=== PATIENT | female | born 1970 | race African-American/Black ===

== ENCOUNTER 2017-01-16 21:13 | Emergency (ER) | payer MEDICAID ==
[~2017-01-16] VITALS: Ht 162.6 cm; Wt 64.9 kg
[2017-01-16 22:05] LABS: Basophils # (auto) 0.1 uL; Basophils % (auto) 1.3 % (0.0-2.0); Eosinophils # (auto) 0.4 uL; Eosinophils % (auto) 5.6 % (0.0-7.0); Hematocrit 36.6 % (36.0-46.0); Hemoglobin 12.2 g/dL (12.2-16.2); Lymphocytes # (auto) 3.6 uL; Lymphocytes % (auto) 47.7 % (10.0-50.0); Mean Corpuscular Hgb Conc. 33.3 g/dL (32.0-36.0); Mean Platelet Volume 7.6 fL (6.9-10.8); Monocytes # (auto) 0.5 uL; Monocytes % (auto) 6.6 % (0.0-12.0); Neutrophils # (auto) 2.9 uL; Neutrophils % (auto) 38.8 % (37.0-80.0); Nucleated Red Blood Cells % 0.1 %; Platelet Count (auto) 323 10^3/uL (140-450); Red Cell Distribution Width 14.4 % (11.8-14.3); White Blood Cell 7.6 10^3/uL (4.4-10.8)
[2017-01-16 22:19] LABS: Prothrombin Time 10.9 sec (9.37-12.3)
[2017-01-16 22:28] LABS: Albumin 3.5 g/dL (3.4-5.0); Alkaline Phosphatase 74 U/L (45-117); Anion Gap 6 (5-15); Aspartate Aminotransferase 14 U/L (15-37); BUN/Creatinine Ratio 11.7; Bilirubin, Total 0.2 mg/dL (0.2-1.0); Blood Urea Nitrogen 9 mg/dL (7-18); Calcium 8.2 mg/dL (8.5-10.1); Carbon Dioxide 25 mmol/L (21-32); Chloride 108 mmol/L (98-107); GFR African American 104 mL/min; GFR Non-African American 86 mL/min; Glucose 94 mg/dL (74-106); Magnesium 2.4 mg/dL (1.6-2.6); Potassium 3.7 mmol/L (3.5-5.1); Sodium 139 mmol/L (136-145); Total Protein 8.2 g/dL (6.4-8.2)
[2017-01-17 04:20] LABS: B-Type Natriuretic Peptide 33.55 pg/mL (0-100)
[2017-01-17] MEDS ORDERED: cloNIDine HCL 0.1 MG TAB PO ONE (04:30)
[2017-01-17 04:56] LABS: Temperature: 23.7 C (20.0-25.0)
[2017-01-17 04:57] LABS: Urine Bilirubin Negative (Negative); Urine Blood Negative /uL (Negative); Urine Color Yellow (Yellow); Urine Glucose Normal (Normal); Urine Ketone Negative (Negative); Urine Nitrite Negative (Negative); Urine RBC 2 /hpf (0 - 4); Urine Squamous Epithelial Cell FEW /hpf (<5); Urine Urobilinogen Normal (Negative)
[2017-01-17] MEDS ORDERED: HYDROcodone-ACET 5/325MG TAB PO ONE (07:30)
[2017-01-17 07:48] VITALS: BP 139/95
== END 2017-01-17 08:24 | disposition home or self-care (01) ==
LOC: ER 21:13
DX: N39.0 Urinary tract infection, site not specified (principal); H92.01 Otalgia, right ear; F17.210 Nicotine dependence, cigarettes, uncomplicated; R07.89 Other chest pain; I10 Essential (primary) hypertension; J45.909 Unspecified asthma, uncomplicated; Z88.6 Allergy status to analgesic agent
CPT/HCPCS: 36415; 70450; 71010; 80053; 81001; 81025; 83735; 83880; 84443; 84484; 85025; 85610; 85730; 93005

== ENCOUNTER 2023-01-18 05:36 | Emergency (ER) | payer MEDICAID ==
[~2023-01-18] VITALS: Ht 170.2 cm; Wt 70.0 kg
[2023-01-18 05:52] VITALS: BP 118/86; PULSE 73; RESP 16; O2SAT 96
[2023-01-18 06:42] LABS: Basophils # (auto) 0.1 10 ^3/uL (0-0.2); Basophils % (auto) 0.8 % (0.0-2.0); Eosinophils # (auto) 0.2 10 ^3/uL (0-0.8); Eosinophils % (auto) 1.3 % (0.0-7.0); Hematocrit 41.2 % (36.0-46.0); Lymphocytes # (auto) 1.9 10 ^3/uL (0.4-5.4); Lymphocytes % (auto) 13.9 % (10.0-50.0); Mean Corpuscular Hemoglobin 32.3 pg (28.0-32.0); Mean Corpuscular Volume 94.8 fL (80.0-100.0); Monocytes # (auto) 0.5 10 ^3/uL (0-1.3); Monocytes % (auto) 3.8 % (0.0-12.0); Neutrophils # (auto) 10.8 10 ^3/uL (1.6-8.6); Neutrophils % (auto) 80.2 % (37.0-80.0); Nucleated Red Blood Cells % 0.1 %; Red Blood Cells 4.35 10^6/uL (4.0-5.20); Red Cell Distribution Width 15.2 % (11.8-14.3); White Blood Cell 13.5 10^3/uL (4.4-10.8)
[2023-01-18 07:03] LABS: Alanine Aminotransferase 20 U/L (7-40); Albumin 4.7 g/dL (3.2-4.8); Alkaline Phosphatase 103 U/L (46-116); Anion Gap 7 (5-15); Aspartate Aminotransferase 19 U/L (13-40); BUN/Creatinine Ratio 12.4 (10.0-20.0); Bilirubin, Total 0.2 mg/dL (0.2-1.0); Blood Urea Nitrogen 13 mg/dL (9-23); Calcium 9.3 mg/dL (8.7-10.4); Carbon Dioxide 23 mmol/L (20-30); Chloride 111 mmol/L (98-107); Glucose 107 mg/dL (74-106); Lipase 46 U/L (12-53); Potassium 4.2 mmol/L (3.5-5.1); Sodium 141 mmol/L (136-145); Total Protein 7.6 g/dL (5.7-8.2)
== END 2023-01-18 12:53 | disposition left against medical advice (07) ==
LOC: ER 05:36 → EDBD 05:36 → ER 12:53
DX: R10.30 Lower abdominal pain, unspecified (principal); I10 Essential (primary) hypertension; J45.909 Unspecified asthma, uncomplicated; F17.210 Nicotine dependence, cigarettes, uncomplicated; Z88.6 Allergy status to analgesic agent
CPT/HCPCS: 36415; 80053; 83690; 84484; 85025; 93005

== ENCOUNTER 2023-04-29 22:43 | Emergency (ER) | payer MEDICAID ==
[~2023-04-29] VITALS: Ht 162.6 cm; Wt 76.8 kg
[~2023-04-29 22:43] MED LIST: CALA1SUS2 EX; HYD25TP TOP; HYDR-3682 PO; METH4PAK PO
[2023-04-29 23:05] VITALS: BP 129/84; PULSE 93; RESP 18; O2SAT 98
[2023-04-30] MEDS: DexAMETHasone SOD PHOS 10MG/1ML VIAL INJ IM ONE (01:48)
[2023-04-30] MEDS: diphenhdrAMINE HCL 50 MG/1 ML VL IM ONE (01:48)
[2023-04-30] MEDS ORDERED: EPIN0.1I11 IJ (03:37)
== END 2023-04-30 03:59 | disposition home or self-care (01) ==
LOC: ER 22:43
DX: L50.0 Allergic urticaria (principal); F17.210 Nicotine dependence, cigarettes, uncomplicated; I10 Essential (primary) hypertension; J45.909 Unspecified asthma, uncomplicated; Z88.6 Allergy status to analgesic agent
CPT/HCPCS: 96372; 99284; J1100; J1200

== ENCOUNTER 2023-05-01 04:47 | Inpatient (IN) | payer MEDICAID ==
[~2023-05-01] VITALS: Ht 162.6 cm; Wt 78.6 kg
[~2023-05-01 04:47] MED LIST changes: +EPIN0.1I11 IJ
[2023-05-01] MEDS: EPINEPHrine HCL 1 MG/1 ML AMP IM ONE ×3 (05:42→06:13)
[2023-05-01] MEDS: diphenhdrAMINE HCL 50 MG/1 ML VL IV ONE (05:49)
[2023-05-01] MEDS: FAMOTIDINE (10MG/ML) 2ML VL IV ONE (05:50)
[2023-05-01] MEDS: DexAMETHasone SOD PHOS 10MG/1ML VIAL INJ IV ONE (05:51)
[2023-05-01 06:03] VITALS: PULSE 102; RESP 13; O2SAT 97
[2023-05-01 06:03] LABS: Hematocrit 45.4 % (36.0-46.0); Hemoglobin 15.3 g/dL (12.2-16.2); Mean Corpuscular Hemoglobin 32.3 pg (28.0-32.0); Mean Corpuscular Hgb Conc. 33.7 g/dL (32.0-36.0); Mean Corpuscular Volume 95.8 fL (80.0-100.0); Red Blood Cells 4.75 10^6/uL (4.0-5.20); Red Cell Distribution Width 13.9 % (11.8-14.3); White Blood Cell 7.6 10^3/uL (4.4-10.8)
[2023-05-01 06:09] LABS: Chloride 110 mmol/L (98-107); Sodium 141 mmol/L (136-145)
[2023-05-01 06:10] LABS: Anion Gap 11 (5-15); Carbon Dioxide 20 mmol/L (20-30)
[2023-05-01 06:11] LABS: Calcium 8.3 mg/dL (8.5-10.1)
[2023-05-01 06:15] LABS: BUN/Creatinine Ratio 7.3 (10.0-20.0); Blood Urea Nitrogen 9 mg/dL (9-23); Glucose 137 mg/dL (74-106)
[2023-05-01 06:28] LABS: Basophils % (manual) 0 (0.0-2.0); Blast Cells 0; Metamyelocytes % 0; Myelocytes % 0; Promyelocytes % 0; Reactive Lymphocytes 0
[2023-05-01 07:30] VITALS: PULSE 114; RESP 19; O2SAT 94
[2023-05-01 08:06] LABS: Band Neutrophils % (manual) 8; Eosinophils % (manual) 1 (0-7); Monocytes % (manual) 6 (0-12)
[2023-05-01 08:07] LABS: Lymphocytes % (manual) 20 (10.0-50.0)
[2023-05-01 08:08] LABS: Platelet Estimate Adequate; RBC Morphology Normal
[2023-05-01] MEDS: SODIUM CHLORIDE 0.9% 1,000 ML IV ONE (08:10)
[2023-05-01] MEDS ORDERED: EPINEPHRINE IM PRN (09:30)
[2023-05-01] MEDS ORDERED: MORPHINE SULFATE INJ 2 MG/ml SYRG IV PRN (09:30)
[2023-05-01] MEDS: SODIUM CHLORIDE 0.9% 1,000 ML IV SCH (10:00)
[2023-05-01] MEDS: POTASSIUM EFFERVESENT TAB 25 MEQ PO ONE (10:01)
[2023-05-01] MEDS: ENOXAPARIN SOD 40 MG/0.4 ML SYRINGE SC SCH (10:04)
[2023-05-01] MEDS: HYDROCORTISONE 2.5% TOPICAL CREAM 30GM TUBE TOP SCH (12:43)
[2023-05-01] MEDS: hydrOXYzine 25 MG TAB or CAP PO SCH (15:03)
[2023-05-01] MEDS: ACETAMINOPHEN 325 MG TAB PO PRN (15:05)
[2023-05-01 19:23] VITALS: PULSE 84; RESP 20; O2SAT 94
[2023-05-01] MEDS: ONDANSETRON HCL 4 MG/2 ML VIAL IV PRN (19:29)
[2023-05-01] MEDS: TEMAZEPAM 15 MG CAP PO PRN (19:29)
[2023-05-01] MEDS: LOPERAMIDE HCL 2 MG CAP/TAB PO PRN (21:47)
[2023-05-02] MEDS: diphenhdrAMINE HCL 50 MG/1 ML VL IV ONE (03:12)
[2023-05-02 05:17] LABS: Urine Bacteria NONE SEEN /hpf (None Seen); Urine Blood Negative /uL (Negative); Urine Clarity Clear (Clear); Urine Color Yellow (Yellow); Urine Protein, UAD TRACE (Negative); Urine Specific Gravity 1.018 (1.001-1.035); Urine Urobilinogen Normal (Negative); Urine WBC 1 /hpf (0 - 5)
[2023-05-02 06:07] LABS: Basophils # (auto) 0 10 ^3/uL (0-0.2); Basophils % (auto) 0.1 % (0.0-2.0); Eosinophils # (auto) 0.1 10 ^3/uL (0-0.8); Eosinophils % (auto) 1.4 % (0.0-7.0); Hematocrit 37.2 % (36.0-46.0); Hemoglobin 12.5 g/dL (12.2-16.2); Lymphocytes # (auto) 3.7 10 ^3/uL (0.4-5.4); Lymphocytes % (auto) 37.4 % (10.0-50.0); Mean Corpuscular Hemoglobin 31.9 pg (28.0-32.0); Mean Corpuscular Hgb Conc. 33.5 g/dL (32.0-36.0); Mean Corpuscular Volume 95.2 fL (80.0-100.0); Monocytes # (auto) 0.3 10 ^3/uL (0-1.3); Monocytes % (auto) 2.8 % (0.0-12.0); Neutrophils # (auto) 5.8 10 ^3/uL (1.6-8.6); Neutrophils % (auto) 58.3 % (37.0-80.0); Nucleated Red Blood Cells % 0.1 %; Red Blood Cells 3.91 10^6/uL (4.0-5.20); Red Cell Distribution Width 13.8 % (11.8-14.3); White Blood Cell 9.9 10^3/uL (4.4-10.8)
[2023-05-02 06:19] LABS: Alanine Aminotransferase 13 U/L (7-40); Albumin 3.7 g/dL (3.2-4.8); Alkaline Phosphatase 49 U/L (46-116); Anion Gap 8 (5-15); Aspartate Aminotransferase 21 U/L (13-40); BUN/Creatinine Ratio 13.4 (10.0-20.0); Blood Urea Nitrogen 11 mg/dL (9-23); Calcium 8.4 mg/dL (8.5-10.1); Carbon Dioxide 23 mmol/L (20-30); Chloride 110 mmol/L (98-107); Glucose 117 mg/dL (74-106); Potassium 3.2 mmol/L (3.5-5.1); Sodium 141 mmol/L (136-145)
[2023-05-02 06:20] LABS: Bilirubin, Total 0.5 mg/dL (0.2-1.0); Total Protein 6.2 g/dL (5.7-8.2)
[2023-05-02 07:52] VITALS: PULSE 79; RESP 17; O2SAT 97
[2023-05-02] MEDS: FAMOTIDINE (10MG/ML) 2ML VL IV SCH (10:07)
[2023-05-02 16:02] VITALS: BP 129/79; PULSE 89; RESP 17; RESP 20; TEMP 98.7; O2SAT 95; O2SAT 96
[2023-05-02] MEDS ORDERED: ATO40T PO (17:21)
[2023-05-02] MEDS ORDERED: HYDR-4798 PO (17:21)
[2023-05-02] MEDS ORDERED: LOSA100T58 PO (17:21)
[2023-05-02] MEDS ORDERED: CARI-277 PO (17:21)
[2023-05-02 20:00] VITALS: PULSE 86; RESP 18; O2SAT 97
[2023-05-02] MEDS: diphenhdrAMINE HCL 50 MG/1 ML VL IV PRN (20:13)
[2023-05-02 21:00] VITALS: BP 121/69; PULSE 94; RESP 18; TEMP 98.1; O2SAT 97
[2023-05-03] VITALS (7 sets, daily range): BP systolic 115–141; BP diastolic 59–83; PULSE 68–93; RESP 15–19; TEMP 97.7–98.9; O2SAT 94–99
[2023-05-03] MEDS: NITROGLYCERIN 0.4 MG SL TAB SL PRN (08:41)
[2023-05-03] MEDS: FUROSEMIDE 40 MG/4 ML VIAL IV ONE (15:28)
[2023-05-03] MEDS: CARISOPRODOL 350 MG TAB PO SCH (17:46)
[2023-05-03] MEDS: POTASSIUM CHL 20 Meq TABLET PO ONE (21:10)
[2023-05-03] MEDS: ATORVASTATIN 20 MG TAB PO SCH (21:10)
[2023-05-04 05:00] VITALS: BP 119/73; PULSE 75; RESP 20; TEMP 98.8; O2SAT 97
[2023-05-04] MEDS: HYDROcodone-ACET 5/325MG TAB PO PRN (05:51)
[2023-05-04 08:00] VITALS: PULSE 65; PULSE 89; RESP 18; O2SAT 98
[2023-05-04] MEDS: LOSARTAN POTASSIUM 50 MG TAB PO SCH (09:03)
[2023-05-04] MEDS ORDERED: BENA-19 PO (10:28)
[2023-05-04 10:47] VITALS: BP 114/73; PULSE 89; RESP 18; TEMP 99.5; O2SAT 97
[2023-05-05 09:23] LABS: Hepatitis B Core IgM Negative; Hepatitis C Antibody Negative (Negative)
== END 2023-05-04 14:16 | disposition home or self-care (01) | DRG 811 ==
LOC: ER 04:47 → EDBD 04:47 → TELE 09:19 → TELE-CENTR 05-02 16:39
PROVIDERS: ADMIT Nurse Practitioner Family; ATTEND Internal Medicine
DX: T78.2XXA Anaphylactic shock, unspecified, initial encounter (principal); E87.6 Hypokalemia; F17.210 Nicotine dependence, cigarettes, uncomplicated; I10 Essential (primary) hypertension; J45.909 Unspecified asthma, uncomplicated; Z88.5 Allergy status to narcotic agent; Y92.098 Other place in other non-institutional residence as the place of occurrence of the external cause
CPT/HCPCS: 36415; 80048; 80053; 81001; 82270; 83735; 85007; 85025; 85027; 85048; 86705; 86803; 87045; 87081; 87177; 87427; 96361; 96372; 96374; 96375; 99291; G0378; J0171; J1100; J2405; J3490

== ENCOUNTER 2023-08-22 17:51 | Emergency (ER) | payer MEDICAID ==
[~2023-08-22] VITALS: Ht 162.6 cm; Wt 72.7 kg
[~2023-08-22 17:51] MED LIST changes: +ATOR-507 PO; +BENA10TA90 PO; +CARI-277 PO; +HYDR-4798 PO; +LOSA-535 PO
[2023-08-22 18:35] VITALS: PULSE 92; RESP 20; O2SAT 98
[2023-08-22] MEDS: ALBUTEROL SULF 2.5 MG/0.5ML(0.5%) NEB SOLN NEB ONE (18:39)
[2023-08-22] MEDS: IPRATROPIUM BROM 0.5 MG/2.5ML INH SOL NEB ONE (18:39)
[2023-08-22] MEDS: KETOROLAC TROMETH 60MG/2ML VIAL IM ONE (19:56)
[2023-08-22 20:41] LABS: Basophils # (auto) 0.1 10 ^3/uL (0-0.2); Basophils % (auto) 0.8 % (0.0-2.0); Eosinophils # (auto) 0.2 10 ^3/uL (0-0.8); Eosinophils % (auto) 2.4 % (0.0-7.0); Hemoglobin 13.5 g/dL (12.2-16.2); Lymphocytes # (auto) 4.2 10 ^3/uL (0.4-5.4); Lymphocytes % (auto) 40.2 % (10.0-50.0); Mean Corpuscular Hemoglobin 32.4 pg (28.0-32.0); Mean Corpuscular Hgb Conc. 34.6 g/dL (32.0-36.0); Mean Corpuscular Volume 93.6 fL (80.0-100.0); Monocytes # (auto) 0.8 10 ^3/uL (0-1.3); Monocytes % (auto) 8.1 % (0.0-12.0); Neutrophils # (auto) 5.1 10 ^3/uL (1.6-8.6); Neutrophils % (auto) 48.5 % (37.0-80.0); Red Blood Cells 4.17 10^6/uL (4.0-5.20); Red Cell Distribution Width 14.7 % (11.8-14.3); White Blood Cell 10.4 10^3/uL (4.4-10.8)
[2023-08-22 20:52] LABS: Anion Gap 6 (5-15); Carbon Dioxide 23 mmol/L (20-30); Chloride 107 mmol/L (98-107); Potassium 3.6 mmol/L (3.5-5.1); Sodium 136 mmol/L (136-145)
[2023-08-22 20:53] LABS: Calcium 9.5 mg/dL (8.5-10.1)
[2023-08-22 20:58] LABS: BUN/Creatinine Ratio 10.8 (10.0-20.0); Blood Urea Nitrogen 10 mg/dL (9-23); Glucose 94 mg/dL (74-106)
[2023-08-22 22:00] VITALS: BP 112/79; PULSE 98; RESP 20; TEMP 98; O2SAT 99
== END 2023-08-22 22:05 | disposition home or self-care (01) ==
LOC: ER 17:51 → EDBD 17:51 → ER 22:04
DX: M79.18 Myalgia, other site (principal); R07.89 Other chest pain; J45.909 Unspecified asthma, uncomplicated; I10 Essential (primary) hypertension; F17.210 Nicotine dependence, cigarettes, uncomplicated; Z88.5 Allergy status to narcotic agent; Z88.1 Allergy status to other antibiotic agents; Z79.899 Other long term (current) drug therapy
CPT/HCPCS: 36415; 71045; 80048; 83880; 84484; 85025; 85379; 94640; 96372; 99284; J1885; J7644

== ENCOUNTER 2023-12-28 18:50 | Emergency (ER) | payer MEDICAID ==
[~2023-12-28] VITALS: Ht 162.6 cm; Wt 76.2 kg
[2023-12-28 20:10] VITALS: BP 142/97; PULSE 77; RESP 16; TEMP 97.7; O2SAT 97
[2023-12-28] MEDS ORDERED: CEFD300C2 PO (21:37)
[2023-12-28] MEDS: DexAMETHasone SOD PHOS 10MG/1ML VIAL INJ IM ONE (21:44)
== END 2023-12-28 21:52 | disposition home or self-care (01) ==
LOC: ER 18:50
DX: H05.013 Cellulitis of bilateral orbits (principal); I10 Essential (primary) hypertension; J45.909 Unspecified asthma, uncomplicated; F17.210 Nicotine dependence, cigarettes, uncomplicated; Z98.890 Other specified postprocedural states; Z88.5 Allergy status to narcotic agent; Z88.8 Allergy status to other drugs, medicaments and biological substances; Z79.899 Other long term (current) drug therapy
CPT/HCPCS: 70450; 96372; 99285; J1100